=== PATIENT | male | born 1990 | race Caucasian/White ===

== ENCOUNTER 2019-12-17 16:03 | Emergency (ER) | payer OTHER ==
[~2019-12-17] VITALS: Ht 180.3 cm; Wt 118.2 kg
[2019-12-17 16:12] VITALS: BP 134/63
[2019-12-17] MEDS ORDERED: triamcinolone acetonide 40mg/ml inj IM ONE (16:55)
== END 2019-12-17 17:24 | disposition home or self-care (01) ==
LOC: ER 16:03
DX: R22.0 Localized swelling, mass and lump, head (principal); L29.8 Other pruritus
CPT/HCPCS: 96372; 99283; J3301

== ENCOUNTER 2020-06-17 15:30 | Emergency (ER) | payer MEDICAID ==
[~2020-06-17] VITALS: Ht 180.3 cm; Wt 125.5 kg
[2020-06-17] MEDS ORDERED: triamcinolone acetonide 40mg/ml inj IM ONE (18:55)
[2020-06-17] MEDS ORDERED: diphenhydrAMINE 25mg capsule PO ONE (18:55)
[2020-06-17] MEDS ORDERED: EPIN0.3P3 IM (18:56)
[2020-06-17] MEDS ORDERED: PRED20TA PO (18:56)
[2020-06-17] MEDS ORDERED: PENI250T2 PO (18:57)
[2020-06-17 19:35] VITALS: BP 135/78
== END 2020-06-17 19:36 | disposition home or self-care (01) ==
LOC: ER 15:31
DX: K04.7 Periapical abscess without sinus (principal); T41.3X5A Adverse effect of local anesthetics, initial encounter; Z79.2 Long term (current) use of antibiotics; Z79.899 Other long term (current) drug therapy; Y92.89 Other specified places as the place of occurrence of the external cause
CPT/HCPCS: 96372; 99283; J3301; Q0163

== ENCOUNTER 2020-12-16 18:13 | Emergency (ER) | payer MEDICAID, OTHER ==
[~2020-12-16] VITALS: Ht 180.3 cm; Wt 101.8 kg
[~2020-12-16 18:13] MED LIST: EPIN0.3P3 IM
[2020-12-16 18:17] VITALS: BP 145/90
[2020-12-16 19:10] LABS: BASOPHILS % (AUTO) 0.6 % (0-1); EOSINOPHILS # (AUTO) 0.2 X10'3 (0-0.9); EOSINOPHILS % (AUTO) 3.1 % (0-6); HEMATOCRIT 43.7 % (42.0-52.0); HEMOGLOBIN 14.9 g/dl (14.0-17.9); LYMPHOCYTES # (AUTO) 1.9 X10'3 (1.1-4.8); LYMPHOCYTES % (AUTO) 24.4 % (21-51); MEAN CORPUSCULAR HEMOGLOBIN 28.4 PG (27.0-31.0); MEAN CORPUSCULAR VOLUME 83.5 FL (78-98); MEAN PLATELET VOLUME 8.9 FL (7.4-10.4); MONOCYTES # (AUTO) 0.5 X10'3 (0-0.9); MONOCYTES % (AUTO) 6.5 % (2-12); NEUTROPHILS # (AUTO) 5.1 X10'3 (1.8-7.7); NEUTROPHILS % (AUTO) 65.4 % (42-75); PLATELET COUNT 266 X10'3 (140-440); RED BLOOD COUNT 5.24 X10'6 (4.70-6.10); RED CELL DISTRIBUTION WIDTH 13.4 % (11.5-14.5); WHITE BLOOD COUNT 7.9 X10'3 (4.5-11.0)
[2020-12-16 19:43] LABS: ALANINE AMINOTRANSFERASE 49 U/L (12-78); ALBUMIN 3.6 G/DL (3.4-5.0); ALKALINE PHOSPHATASE 100 IU/L (46-116); ANION GAP 10 (8-16); ASPARTATE AMINO TRANSFERASE 28 U/L (10-37); BILIRUBIN,TOTAL 0.4 MG/DL (0.1-1.0); BLOOD UREA NITROGEN 16 MG/DL (7-18); BUN/CREATININE RATIO 15.2 (5.4-32.0); CALCIUM 8.7 MG/DL (8.5-10.1); CHLORIDE 103 MMOL/L (99-107); CREATININE 1.05 MG/DL (0.60-1.10); GLUCOSE 119 MG/DL (70-104); POTASSIUM 3.7 MMOL/L (3.5-5.1); SODIUM 137 MMOL/L (135-145); TOTAL CARBON DIOXIDE 24.2 MMOL/L (24-32); TOTAL PROTEIN 7.3 G/DL (6.4-8.2); eGFR 84 ML/MIN
[2020-12-16] MEDS ORDERED: famotidine 20mg tablet PO ONE (20:05)
[2020-12-16] MEDS ORDERED: mupirocin 2% ointment 22GM TP STA (20:15)
[2020-12-16] MEDS ORDERED: iohexol 300mg/ml 100ml inj. ONE (20:20)
[2020-12-16] MEDS ORDERED: MUPI22OI30 TOP (21:53)
[2020-12-16] MEDS ORDERED: CEPH250T PO (21:53)
== END 2020-12-16 22:02 | disposition home or self-care (01) ==
LOC: ER 18:14
DX: L76.82 Other postprocedural complications of skin and subcutaneous tissue (principal); Z91.030 Bee allergy status; Z79.2 Long term (current) use of antibiotics; Z79.899 Other long term (current) drug therapy; Z98.890 Other specified postprocedural states
CPT/HCPCS: 36415; 74177; 80053; 83605; 84145; 85025; 87040; 99285; Q9967